=== PATIENT | female | born 1990 | race Caucasian/White ===

== ENCOUNTER 2024-03-02 11:56 | Emergency (ER) | payer OTHER, MEDICAID, SELFPAY ==
[2024-03-02] VITALS (18 sets, daily range): BP systolic 103–123; BP diastolic 66–82; PULSE 102–130; RESP 13–31; TEMP 37.1; O2SAT 96–100
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
[2024-03-02] MEDS: Normal Saline 1,000 ML 1000 ML IV ×2 (12:01→13:01)
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
[2024-03-02 12:17] LABS: Absolute Basophil Count 0.07 10^3/uL (0.0-0.2); Absolute Lymphocyte Count 1.75 10^3/uL (1.2-3.4); Absolute Monocyte Count 0.27 10^3/uL (0.1-0.8); Absolute Neutrophil Count 2.96 10^3/uL (1.2-6.7); Basophils % 1.3; HCT 34.7 % (36.0-46.0); HGB 11.9 g/dL (11.2-15.7); Immature Grans % 3.8; Lymphocytes % 33.3; MCHC 34.3 % (32.0-36.0); MCV 93 fL (80-95); MPV 9.3 fL (8.0-11.0); Monocytes % 5.1; Neutrophils % 56.5; Platelet Count 238 10^3/uL (130-400); RBC 3.72 10^6/uL (3.93-5.22); RDW 14.1 % (11.7-14.6); RDW-SD 48.4 fL; WBC 5.25 10^3/uL (4.4-10.8)
[2024-03-02] MEDS: Normal Saline - Diluent 50 ML VIAL IJ (12:19)
[2024-03-02] MEDS: Omnipaque 350 MG/ML 100 ML BTL 75 ML IJ (12:20)
[2024-03-02] MEDS: Normal Saline Flush 10 ML SYR IVP (12:21)
[2024-03-02 12:40] LABS: ALT 119 U/L (14-59); AST 308 U/L (15-37); Albumin 2.9 g/dL (3.4-5.0); Alkaline Phosphatase 136 U/L (46-116); Anion Gap 13.4 mmol/L (3-11); BUN 20 mg/dL (7-18); Bilirubin, Total 0.3 mg/dL (0.2-1.0); CO2 24.6 mmol/L (21.0-32.0); CREATININE 0.6 mg/dL (0.55-1.02); Calcium 8.2 mg/dL (8.5-10.1); Chloride 104 mmol/L (98-107); ETHANOL BLOOD 270.1 mg/dL (<10); Estimated GFR 119.97 (mL/min/1.73m2); Glucose 108 mg/dL (74-106); Lipase 30 U/L (16-77); Magnesium 1.9 mg/dL (1.8-2.4); Potassium 3.3 mmol/L (3.5-5.1); Sodium 142 mmol/L (136-145); Total Protein 6.6 g/dL (6.4-8.2)
[2024-03-02 12:41] LABS: HCG Qual (Serum) Negative
[2024-03-02] MEDS: MORPHine 10 MG/ML VIAL 4 MG IVP (12:58)
[2024-03-02] MEDS: Ondansetron 4 MG/2 ML VIAL IVP (12:59)
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
[2024-03-02] MEDS: Ketorolac 15 MG/ML VIAL IVP (14:04)
[2024-03-02] MEDS: Methocarbamol 500 MG TAB 1000 MG PO (14:04)
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
[2024-03-02 15:16] LABS: Bilirubin Negative (Negative); Blood Negative (Negative); Clarity Clear (Clear); Glucose Negative (Negative); Ketones Trace mg/dL (Negative); Leukocyte Esterase Negative (Negative); Nitrite Negative (Negative); Specific Gravity 1.015 (1.005-1.025); Urobilinogen 0.2 mg/dL (Up to 0.2)
[2024-03-02 15:38] LABS: *AMPHETAMINES SCREEN URINE Negative (Negative); *BARBITURATES SCREEN URINE Negative (Negative); *BENZODIAZEPINES SCREEN URINE Negative (Negative); Cannabinoids THC Negative (Negative); Cocaine Screen,Urine Positive (Negative); METHADONE URINE SCREEN Negative (Negative); OPIATES URINE SCREEN Positive (Negative)
[2024-03-02 15:39] LABS: Tricyclic Antidepressants Negative (Negative)
--- NOTE | 2024-03-02 15:54 | NUR.NOTE ---
Nursing Note: Patient able to stand at bedside and ambulate out to parking area when discharged. Steps are slow but equal without obvious instability or c/o dizziness. Denies nausea, shortness of breath, lightheadedness. Ate and tolerated a popsicle while here and able to urinate prior to discharge. Has no questions at time of discharge. Mom assisted patient out to parking area.
== END 2024-03-02 16:07 | disposition home or self-care (01) ==
PROVIDERS: Emergency Provider Emergency Medicine
DX: S50.12XA Contusion of left forearm, initial encounter (principal); S80.11XA Contusion of right lower leg, initial encounter; F10.120 Alcohol abuse with intoxication, uncomplicated; F14.90 Cocaine use, unspecified, uncomplicated; Y90.8 Blood alcohol level of 240 mg/100 ml or more; V43.52XA Car driver injured in collision with other type car in traffic accident, initial encounter; W22.11XA Striking against or struck by driver side automobile airbag, initial encounter; S80.12XA Contusion of left lower leg, initial encounter
CPT/HCPCS: 74177; 80053; 80307; 81025; 83690; 96361; 96374; 96375; 99285; 70450; 71260; 72125; 80320; 81003; 83735; 84702; 84703; 85025; J1885; J2270; J2405; J3490